=== PATIENT | female | born 1950 | race Two or more races ===

== ENCOUNTER 2018-09-05 10:01 | Emergency (ER) | payer MEDICARE, MEDICAID ==
[~2018-09-05] VITALS: Ht 152.4 cm; Wt 49.9 kg
[2018-09-05] MEDS ORDERED: ONDANSETRON HCL 4 MG/2 ML VIAL IV ONE (11:00)
[2018-09-05] MEDS ORDERED: MORPHINE SULFATE 4 MG/ML SYR/VIAL IV ONE (11:00)
[2018-09-05 14:46] VITALS: BP 151/84
== END 2018-09-05 14:47 | disposition home or self-care (01) ==
LOC: ER 10:15
DX: S42.201A Unspecified fracture of upper end of right humerus, initial encounter for closed fracture (principal); E11.9 Type 2 diabetes mellitus without complications; I10 Essential (primary) hypertension; Z86.73 Personal history of transient ischemic attack (TIA), and cerebral infarction without residual deficits; W01.198A Fall on same level from slipping, tripping and stumbling with subsequent striking against other object, initial encounter; Y93.89 Activity, other specified; Y92.89 Other specified places as the place of occurrence of the external cause; Y99.8 Other external cause status
CPT/HCPCS: 73060; 93005; 96374; 96375; 99283; J2270; J2405

== ENCOUNTER → 2018-10-04 | Outpatient (CLI) | payer MEDICARE, OTHER ==
[~2018-10-04] MED LIST: LEVO500T21 PO; METF-370 PO; METR500T PO
[2018-10-04 09:07] LABS: Basophils # (auto) 0 uL; Basophils % (auto) 0.6 % (0.0-2.0); Eosinophils # (auto) 0 uL; Eosinophils % (auto) 0.6 % (0.0-7.0); Hematocrit 39.8 % (36.0-46.0); Hemoglobin 13.1 g/dL (12.2-16.2); Lymphocytes # (auto) 0.5 uL; Lymphocytes % (auto) 8.4 % (10.0-50.0); Mean Corpuscular Volume 91.1 fL (80.0-100.0); Monocytes # (auto) 0.3 uL; Monocytes % (auto) 5.2 % (0.0-12.0); Neutrophils # (auto) 5.3 uL; Neutrophils % (auto) 85.2 % (37.0-80.0); Platelet Count (auto) 266 10^3/uL (140-450); Red Blood Cells 4.37 10^6/uL (4.0-5.20); Red Cell Distribution Width 15.5 % (11.8-14.3); White Blood Cell 6.3 10^3/uL (4.4-10.8)
== END | disposition home or self-care (01) ==
LOC: LAB 08:53
PROVIDERS: ATTEND Internal Medicine
DX: D64.9 Anemia, unspecified (principal)
CPT/HCPCS: 36415; 85025

== ENCOUNTER → 2018-12-15 | Outpatient (CLI) | payer MEDICARE, OTHER, BC ==
[2018-12-15 11:18] LABS: Urine Bacteria MOD /hpf (None Seen); Urine Blood TRACE /uL (Negative); Urine Mucus FEW (None Seen); Urine Specific Gravity 1.016 (1.001-1.035); Urine WBC 107 /hpf (0 - 5); Urine WBC Clumps PRESENT /hpf (None Seen)
== END | disposition home or self-care (01) ==
LOC: LAB 10:07
PROVIDERS: ATTEND Internal Medicine
DX: Z12.11 Encounter for screening for malignant neoplasm of colon (principal); N39.0 Urinary tract infection, site not specified; E11.9 Type 2 diabetes mellitus without complications; I10 Essential (primary) hypertension; E55.9 Vitamin D deficiency, unspecified
CPT/HCPCS: 81001; 82043; 82306; 87086; 87088; 87186

== ENCOUNTER 2022-05-03 00:13 | Inpatient (IN) | payer MEDICARE, OTHER ==
[~2022-05-03] VITALS: Ht 152.4 cm; Wt 49.7 kg
[~2022-05-03 00:13] MED LIST changes: -LEVO500T21 PO; +LEVO500T31 PO
[2022-05-03 01:55] LABS: Basophils # (auto) 0 10 ^3/uL (0-0.2); Basophils % (auto) 0.4 % (0.0-2.0); Eosinophils # (auto) 0 10 ^3/uL (0-0.8); Eosinophils % (auto) 0.8 % (0.0-7.0); Hematocrit 30.9 % (36.0-46.0); Hemoglobin 9.8 g/dL (12.2-16.2); Lymphocytes # (auto) 0.8 10 ^3/uL (0.4-5.4); Lymphocytes % (auto) 12.7 % (10.0-50.0); Mean Corpuscular Hemoglobin 27.8 pg (28.0-32.0); Mean Corpuscular Hgb Conc. 31.8 g/dL (32.0-36.0); Mean Corpuscular Volume 87.5 fL (80.0-100.0); Monocytes # (auto) 0.4 10 ^3/uL (0-1.3); Monocytes % (auto) 7.3 % (0.0-12.0); Neutrophils # (auto) 4.7 10 ^3/uL (1.6-8.6); Neutrophils % (auto) 78.8 % (37.0-80.0); Red Blood Cells 3.54 10^6/uL (4.0-5.20); Red Cell Distribution Width 17.3 % (11.8-14.3)
[2022-05-03 02:16] LABS: Albumin 2.1 g/dL (3.4-5.0); BUN/Creatinine Ratio 58.8; Calcium 8.1 mg/dL (8.5-10.1); Potassium 4.3 mmol/L (3.5-5.1)
[2022-05-03 02:19] LABS: Bilirubin, Total 1.1 mg/dL (0.2-1.0); Total Protein 4.8 g/dL (6.4-8.2)
[2022-05-03] MEDS ORDERED: SODIUM CHLORIDE 0.9% 500 ML IV ONE (04:15)
[2022-05-03] MEDS ORDERED: IOHEXOL 350 MG/ML 100ML IJ ONE (08:14)
[2022-05-03] MEDS ORDERED: ceFAZolin 1GM/50ML 50 ML IV ONE (11:00)
[2022-05-03] MEDS ORDERED: SODIUM CHLORIDE 0.9% 1,000 ML IV ONE (11:00)
[2022-05-03] MEDS ORDERED: DEXTROSE (50%) 50ML SYRG IV PRN (11:45)
[2022-05-03] MEDS ORDERED: MORPHINE SULFATE INJ 2 MG/ml SYRG IV PRN (11:45)
[2022-05-03] MEDS ORDERED: ACETAMINOPHEN 325 MG TAB PO PRN (11:45)
[2022-05-03] MEDS: SODIUM CHLORIDE 0.9% 1,000 ML IV SCH (11:45)
[2022-05-03] MEDS ORDERED: NITROGLYCERIN 0.4 MG SL TAB SL PRN (11:45)
[2022-05-03 11:47] LABS: Basophils # (auto) 0 10 ^3/uL (0-0.2); Basophils % (auto) 0.4 % (0.0-2.0); Eosinophils # (auto) 0 10 ^3/uL (0-0.8); Eosinophils % (auto) 0.8 % (0.0-7.0); Hematocrit 31.3 % (36.0-46.0); Hemoglobin 10.1 g/dL (12.2-16.2); Lymphocytes # (auto) 0.7 10 ^3/uL (0.4-5.4); Lymphocytes % (auto) 18.7 % (10.0-50.0); Mean Corpuscular Hemoglobin 28.6 pg (28.0-32.0); Mean Corpuscular Hgb Conc. 32.2 g/dL (32.0-36.0); Mean Corpuscular Volume 88.7 fL (80.0-100.0); Monocytes # (auto) 0.3 10 ^3/uL (0-1.3); Monocytes % (auto) 7.4 % (0.0-12.0); Neutrophils # (auto) 2.9 10 ^3/uL (1.6-8.6); Neutrophils % (auto) 72.7 % (37.0-80.0); Nucleated Red Blood Cells % 0.3 %; Red Blood Cells 3.53 10^6/uL (4.0-5.20); White Blood Cell 3.9 10^3/uL (4.4-10.8)
[2022-05-03 11:57] LABS: INR 1.04 (0.9-1.15); Partial Thromboplastin Time 32.8 sec (24.6-33.4)
[2022-05-03 12:03] LABS: Albumin 2.1 g/dL (3.4-5.0); Calcium 7.9 mg/dL (8.5-10.1); Potassium 4.1 mmol/L (3.5-5.1)
[2022-05-03 12:07] LABS: BUN/Creatinine Ratio 53.3; Bilirubin, Total 1.2 mg/dL (0.2-1.0); Total Protein 4.8 g/dL (6.4-8.2)
[2022-05-03] MEDS ORDERED: hydrALAZINE HCL 20 MG/ML VL IV PRN (12:15)
[2022-05-03 12:56] LABS: Cholesterol 107 mg/dL (< 200)
[2022-05-03 12:59] LABS: HDL Cholesterol 45 mg/dL (40-59); LDL Cholesterol 63 mg/dL (< 100); Triglycerides 66 mg/dL (< 150)
[2022-05-03] MEDS: InsuLIN REG 1unit/0.01ml Soln (100units/ml) SC SCH ×2 (17:00→22:26)
[2022-05-03] MEDS: ACCU-CHEK COMFORT CURVE STRIP VI SCH ×2 (17:24→22:19)
[2022-05-04] MEDS: SODIUM CHLORIDE 0.9% 1,000 ML IV SCH ×2 (04:06→20:56)
[2022-05-04 04:39] LABS: Urine Bacteria NONE SEEN /hpf (None Seen); Urine Blood 2+ /uL (Negative); Urine Mucus FEW (None Seen); Urine Specific Gravity 1.017 (1.001-1.035); Urine WBC 133 /hpf (0 - 5)
[2022-05-04 05:44] LABS: Basophils # (auto) 0 10 ^3/uL (0-0.2); Basophils % (auto) 0.4 % (0.0-2.0); Eosinophils # (auto) 0 10 ^3/uL (0-0.8); Eosinophils % (auto) 0.7 % (0.0-7.0); Hematocrit 27.1 % (36.0-46.0); Hemoglobin 8.8 g/dL (12.2-16.2); Lymphocytes # (auto) 1.2 10 ^3/uL (0.4-5.4); Lymphocytes % (auto) 19.5 % (10.0-50.0); Mean Corpuscular Hemoglobin 28.9 pg (28.0-32.0); Mean Corpuscular Hgb Conc. 32.7 g/dL (32.0-36.0); Mean Corpuscular Volume 88.3 fL (80.0-100.0); Monocytes # (auto) 0.4 10 ^3/uL (0-1.3); Monocytes % (auto) 7.1 % (0.0-12.0); Neutrophils # (auto) 4.4 10 ^3/uL (1.6-8.6); Neutrophils % (auto) 72.3 % (37.0-80.0); Nucleated Red Blood Cells % 0.1 %; Red Blood Cells 3.07 10^6/uL (4.0-5.20); Red Cell Distribution Width 17.7 % (11.8-14.3); White Blood Cell 6.1 10^3/uL (4.4-10.8)
[2022-05-04 05:45] LABS: Albumin 1.8 g/dL (3.4-5.0); Calcium 8.1 mg/dL (8.5-10.1); Potassium 4.2 mmol/L (3.5-5.1)
[2022-05-04 05:50] LABS: BUN/Creatinine Ratio 30.8; Bilirubin, Total 1.1 mg/dL (0.2-1.0); Total Protein 4.9 g/dL (6.4-8.2)
[2022-05-04] MEDS: ACCU-CHEK COMFORT CURVE STRIP VI SCH ×4 (06:38→21:49)
[2022-05-04] MEDS: InsuLIN REG 1unit/0.01ml Soln (100units/ml) SC SCH ×4 (06:39→21:50)
[2022-05-04 09:19] VITALS: BP 148/65
[2022-05-04] MEDS: MORPHINE SULFATE INJ 2 MG/ml SYRG IV PRN ×2 (09:22→16:23)
[2022-05-04] MEDS ORDERED: cefTRIAXone 1GM/50ML D5W 50 ML IV ONE (11:00)
[2022-05-04] MEDS: ENOXAPARIN SOD 40 MG/0.4 ML SYRINGE SC SCH (11:02)
[2022-05-04] MEDS: Glucerna Carbsteady SHAKE Vanilla 8oz PO SCH ×2 (12:00→18:00)
[2022-05-04 12:30] VITALS: BP 124/60
[2022-05-04 17:00] VITALS: BP 112/53
[2022-05-04 20:00] VITALS: BP 93/44
[2022-05-04 22:00] VITALS: BP 93/44
[2022-05-05] VITALS (7 sets, daily range): BP systolic 96–140; BP diastolic 47–63
[2022-05-05] MEDS: SODIUM CHLORIDE 0.9% 1,000 ML IV SCH ×2 (03:45→10:13)
[2022-05-05] MEDS: HYDROcodone-ACET 5/325MG TAB PO PRN ×3 (04:33→21:58)
[2022-05-05 06:26] LABS: Potassium 4.2 mmol/L (3.5-5.1)
[2022-05-05] MEDS: ACCU-CHEK COMFORT CURVE STRIP VI SCH ×2 (06:30→21:58)
[2022-05-05] MEDS: InsuLIN REG 1unit/0.01ml Soln (100units/ml) SC SCH ×2 (06:33→22:06)
[2022-05-05 06:39] LABS: BUN/Creatinine Ratio 40.8; Calcium 7.6 mg/dL (8.5-10.1)
[2022-05-05 06:50] LABS: Basophils # (auto) 0 10 ^3/uL (0-0.2); Basophils % (auto) 0.3 % (0.0-2.0); Eosinophils # (auto) 0 10 ^3/uL (0-0.8); Eosinophils % (auto) 0.9 % (0.0-7.0); Lymphocytes # (auto) 1.1 10 ^3/uL (0.4-5.4); Lymphocytes % (auto) 21.8 % (10.0-50.0); Mean Corpuscular Hemoglobin 29.6 pg (28.0-32.0); Mean Corpuscular Hgb Conc. 33.3 g/dL (32.0-36.0); Mean Corpuscular Volume 88.8 fL (80.0-100.0); Monocytes # (auto) 0.4 10 ^3/uL (0-1.3); Monocytes % (auto) 8.8 % (0.0-12.0); Neutrophils # (auto) 3.5 10 ^3/uL (1.6-8.6); Neutrophils % (auto) 68.2 % (37.0-80.0); Nucleated Red Blood Cells % 0.1 %; Red Blood Cells 3.04 10^6/uL (4.0-5.20); Red Cell Distribution Width 18.2 % (11.8-14.3); White Blood Cell 5.1 10^3/uL (4.4-10.8)
[2022-05-05] MEDS: Glucerna Carbsteady SHAKE Vanilla 8oz PO SCH ×3 (08:00→18:00)
[2022-05-05] MEDS: cefTRIAXone 1GM/50ML D5W 50 ML IV SCH (08:41)
[2022-05-05] MEDS: ENOXAPARIN SOD 40 MG/0.4 ML SYRINGE SC SCH (10:11)
[2022-05-06 05:00] VITALS: BP 108/70
[2022-05-06] MEDS: SODIUM CHLORIDE 0.9% 1,000 ML IV SCH ×2 (06:34→19:45)
[2022-05-06] MEDS: ACCU-CHEK COMFORT CURVE STRIP VI SCH ×4 (06:36→21:34)
[2022-05-06] MEDS: InsuLIN REG 1unit/0.01ml Soln (100units/ml) SC SCH ×4 (06:36→21:35)
[2022-05-06 06:48] LABS: Basophils # (auto) 0 10 ^3/uL (0-0.2); Basophils % (auto) 0.2 % (0.0-2.0); Eosinophils # (auto) 0.1 10 ^3/uL (0-0.8); Eosinophils % (auto) 1.3 % (0.0-7.0); Hematocrit 30.1 % (36.0-46.0); Hemoglobin 9.5 g/dL (12.2-16.2); Lymphocytes # (auto) 1.3 10 ^3/uL (0.4-5.4); Lymphocytes % (auto) 20.1 % (10.0-50.0); Mean Corpuscular Hemoglobin 28.1 pg (28.0-32.0); Mean Corpuscular Hgb Conc. 31.5 g/dL (32.0-36.0); Monocytes # (auto) 0.6 10 ^3/uL (0-1.3); Monocytes % (auto) 9.8 % (0.0-12.0); Neutrophils # (auto) 4.3 10 ^3/uL (1.6-8.6); Neutrophils % (auto) 68.6 % (37.0-80.0); Nucleated Red Blood Cells % 0.2 %; Red Blood Cells 3.38 10^6/uL (4.0-5.20); Red Cell Distribution Width 18.8 % (11.8-14.3); White Blood Cell 6.3 10^3/uL (4.4-10.8)
[2022-05-06 08:00] VITALS: BP 123/60
[2022-05-06] MEDS: Glucerna Carbsteady SHAKE Vanilla 8oz PO SCH ×3 (08:00→18:08)
[2022-05-06 08:19] VITALS: BP 123/60
[2022-05-06] MEDS: cefTRIAXone 1GM/50ML D5W 50 ML IV SCH (10:04)
[2022-05-06] MEDS: ENOXAPARIN SOD 40 MG/0.4 ML SYRINGE SC SCH (10:04)
[2022-05-06] MEDS: MORPHINE SULFATE INJ 2 MG/ml SYRG IV PRN (10:05)
[2022-05-06 16:27] VITALS: BP 95/46
[2022-05-06 20:20] VITALS: BP 100/50
[2022-05-06 22:00] VITALS: BP 100/50
[2022-05-06] MEDS: HYDROcodone-ACET 5/325MG TAB PO PRN (23:54)
[2022-05-07 05:00] VITALS: BP 105/44
[2022-05-07] MEDS: ACCU-CHEK COMFORT CURVE STRIP VI SCH ×3 (06:18→18:25)
[2022-05-07] MEDS: InsuLIN REG 1unit/0.01ml Soln (100units/ml) SC SCH ×3 (06:18→17:00)
[2022-05-07 08:00] VITALS: BP 100/50
[2022-05-07 08:19] VITALS: BP 112/52
[2022-05-07] MEDS: cefTRIAXone 1GM/50ML D5W 50 ML IV SCH (09:07)
[2022-05-07] MEDS: SODIUM CHLORIDE 0.9% 1,000 ML IV SCH (09:08)
[2022-05-07] MEDS: Glucerna Carbsteady SHAKE Vanilla 8oz PO SCH ×3 (09:08→18:25)
[2022-05-07] MEDS: ENOXAPARIN SOD 40 MG/0.4 ML SYRINGE SC SCH (09:09)
[2022-05-07 12:19] VITALS: BP 104/31
[2022-05-07 16:19] VITALS: BP 118/53
[2022-05-07 17:02] VITALS: BP 118/53
== END 2022-05-07 19:40 | disposition home health service (06) | DRG 534 ==
LOC: EDBD 00:13 → ER 00:13 → EDUNIT# 00:13 → TELE 11:43 → TELE-WESTW 05-04 08:47
PROVIDERS: ADMIT Registered Nurse; ATTEND Internal Medicine
DX: S72.401A Unspecified fracture of lower end of right femur, initial encounter for closed fracture (principal); N39.0 Urinary tract infection, site not specified; E44.0 Moderate protein-calorie malnutrition; E78.5 Hyperlipidemia, unspecified; D64.9 Anemia, unspecified; E11.9 Type 2 diabetes mellitus without complications; E86.0 Dehydration; I10 Essential (primary) hypertension; W18.39XA Other fall on same level, initial encounter; Z20.822 Contact with and (suspected) exposure to COVID-19; Z86.73 Personal history of transient ischemic attack (TIA), and cerebral infarction without residual deficits; Z68.20 Body mass index [BMI] 20.0-20.9, adult; Y93.89 Activity, other specified; Y92.89 Other specified places as the place of occurrence of the external cause; Y99.8 Other external cause status; M62.461 Contracture of muscle, right lower leg
CPT/HCPCS: 36415; 70450; 71045; 71275; 73590; 73630; 73700; 80048; 80053; 80061; 81001; 82962; 83036; 83880; 84443; 84484; 85025; 85379; 85610; 85730; 87040; 87077; 87086; 87088; 87186; 87426; 93005; 93306; 93926; 93970; 96360; G0378; J0690; J0696; J1815

== ENCOUNTER 2022-08-28 21:06 | Inpatient (IN) | payer MEDICARE, OTHER ==
[~2022-08-28] VITALS: Ht 152.4 cm; Wt 54.2 kg
[2022-08-28 22:19] LABS: Basophils # (auto) 0 10 ^3/uL (0-0.2); Basophils % (auto) 0.1 % (0.0-2.0); Eosinophils # (auto) 0 10 ^3/uL (0-0.8); Eosinophils % (auto) 0.4 % (0.0-7.0); Hemoglobin 13.1 g/dL (12.2-16.2); Lymphocytes # (auto) 0.6 10 ^3/uL (0.4-5.4); Lymphocytes % (auto) 4.7 % (10.0-50.0); Mean Corpuscular Hemoglobin 28.5 pg (28.0-32.0); Mean Corpuscular Volume 89.1 fL (80.0-100.0); Monocytes # (auto) 0.3 10 ^3/uL (0-1.3); Monocytes % (auto) 2.4 % (0.0-12.0); Neutrophils % (auto) 92.4 % (37.0-80.0); Red Cell Distribution Width 19.4 % (11.8-14.3); White Blood Cell 11.9 10^3/uL (4.4-10.8)
[2022-08-28 22:45] LABS: Albumin 2.1 g/dL (3.4-5.0); Calcium 8.5 mg/dL (8.5-10.1)
[2022-08-28 22:49] LABS: BUN/Creatinine Ratio 58.7 (10.0-20.0); Bilirubin, Total 0.7 mg/dL (0.2-1.0); Total Protein 5.8 g/dL (6.4-8.2)
[2022-08-28] MEDS ORDERED: LACTATED RINGER S IV ONE (23:00)
[2022-08-28] MEDS ORDERED: POTASSIUM CHL 20MEQ/100ML 100 ML IV ONE (23:00)
[2022-08-29] MEDS ORDERED: NITROGLYCERIN 0.4 MG SL TAB SL PRN (03:00)
[2022-08-29] MEDS ORDERED: ONDANSETRON HCL 4 MG/2 ML VIAL IV PRN (03:00)
[2022-08-29] MEDS ORDERED: HYDROcodone-ACET 5/325MG TAB PO PRN (03:00)
[2022-08-29] MEDS ORDERED: DEXTROSE (50%) 50ML SYRG IV PRN (03:00)
[2022-08-29] MEDS ORDERED: MORPHINE SULFATE INJ 2 MG/ml SYRG IV PRN (03:00)
[2022-08-29] MEDS ORDERED: cefTRIAXone 1GM/50ML D5W 50 ML IV ONE (03:00)
[2022-08-29] MEDS ORDERED: DOCUSATE SOD 100 MG CAP PO PRN (03:00)
[2022-08-29] MEDS: LACTATED RINGER'S 1,000 ML IV SCH (06:43)
[2022-08-29] MEDS: InsuLIN REG 1unit/0.01ml Soln (100units/ml) SC SCH ×3 (06:54→17:44)
[2022-08-29] MEDS: ACCU-CHEK COMFORT CURVE STRIP VI SCH ×4 (06:54→22:28)
[2022-08-29 07:06] LABS: Basophils # (auto) 0 10 ^3/uL (0-0.2); Eosinophils # (auto) 0 10 ^3/uL (0-0.8); Eosinophils % (auto) 0.1 % (0.0-7.0); Hemoglobin 13.1 g/dL (12.2-16.2); Lymphocytes # (auto) 0.8 10 ^3/uL (0.4-5.4)
[2022-08-29 07:08] LABS: Basophils % (auto) 0.1 % (0.0-2.0); Lymphocytes % (auto) 7.1 % (10.0-50.0); Mean Corpuscular Hemoglobin 29.3 pg (28.0-32.0); Mean Corpuscular Hgb Conc. 33.7 g/dL (32.0-36.0); Mean Corpuscular Volume 86.9 fL (80.0-100.0); Monocytes # (auto) 0.3 10 ^3/uL (0-1.3); Monocytes % (auto) 3.1 % (0.0-12.0); Neutrophils # (auto) 9.8 10 ^3/uL (1.6-8.6); Neutrophils % (auto) 89.6 % (37.0-80.0); Red Blood Cells 4.49 10^6/uL (4.0-5.20); Red Cell Distribution Width 19.2 % (11.8-14.3); White Blood Cell 10.9 10^3/uL (4.4-10.8)
[2022-08-29 07:24] LABS: Alanine Aminotransferase 21 U/L (13-56); Albumin 1.9 g/dL (3.4-5.0); Anion Gap 9 (5-15); Aspartate Aminotransferase 24 U/L (15-37); Blood Urea Nitrogen 78 mg/dL (7-18); Calcium 8.1 mg/dL (8.5-10.1); Carbon Dioxide 23 mmol/L (21-32); Chloride 113 mmol/L (98-107); GFR African American 61 mL/min; GFR Non-African American 50 mL/min; Glucose 110 mg/dL (74-106); Potassium 3.6 mmol/L (3.5-5.1); Sodium 145 mmol/L (136-145)
[2022-08-29 07:27] LABS: Alkaline Phosphatase 103 U/L (45-117); Bilirubin, Total 0.6 mg/dL (0.2-1.0); Total Protein 5.7 g/dL (6.4-8.2)
[2022-08-29] MEDS: ZINC SULFATE 220mg CAP or TAB PO SCH (10:51)
[2022-08-29] MEDS: MULTIPLE VITAMIN TAB PO SCH (10:51)
[2022-08-29] MEDS: ASCORBIC ACID 500 MG TAB PO SCH ×2 (10:52→22:40)
[2022-08-29 13:01] LABS: Urine Bacteria FEW /hpf (None Seen); Urine Blood 3+ /uL (Negative); Urine Mucus FEW (None Seen); Urine Specific Gravity 1.016 (1.001-1.035); Urine WBC 511 /hpf (0 - 5); Urine WBC Clumps PRESENT /hpf (None Seen)
[2022-08-29 13:13] LABS: Alcohol, Urine < 3.0 mg/dL (0-10); Amphetamine Screen, Urine NEGATIVE (NEGATIVE); Barbiturate Scree,Urine NEGATIVE (NEGATIVE); Benzodiazephine Screen, Urine NEGATIVE (NEGATIVE); Cannabinoid Screen, Urine NEGATIVE (NEGATIVE); Cocaine Screen, Urine NEGATIVE (NEGATIVE); Opiate Scree,Urine NEGATIVE (NEGATIVE); Phencyclidine Screen, Urine NEGATIVE (NEGATIVE)
[2022-08-29 13:20] LABS: Protein, Urine 110.4 mg/dL (0.0-11.9)
[2022-08-29] MEDS: MEROPENEM 1GM IVPB 100 ML IV SCH ×2 (13:49→22:05)
[2022-08-29] MEDS ORDERED: POTASSIUM PHOSPHATE 26.4 MEQ in SODIUM CHL 0.9% 100 ML IV ONE ×2 (14:30→15:00)
[2022-08-29] MEDS ORDERED: InsuLIN REG 1unit/0.01ml Soln (100units/ml) SC SCH (22:00)
[2022-08-30] MEDS: LACTATED RINGER'S 1,000 ML IV SCH ×2 (00:30→05:40)
[2022-08-30 00:45] VITALS: BP 129/68
[2022-08-30 05:00] VITALS: BP 133/75
[2022-08-30] MEDS: InsuLIN REG 1unit/0.01ml Soln (100units/ml) SC SCH ×3 (06:02→17:06)
[2022-08-30] MEDS: ACCU-CHEK COMFORT CURVE STRIP VI SCH ×3 (06:02→17:06)
[2022-08-30 06:54] LABS: Basophils # (auto) 0 10 ^3/uL (0-0.2); Basophils % (auto) 0.1 % (0.0-2.0); Eosinophils # (auto) 0 10 ^3/uL (0-0.8); Hemoglobin 13.4 g/dL (12.2-16.2); Monocytes # (auto) 0.2 10 ^3/uL (0-1.3); Neutrophils # (auto) 5.1 10 ^3/uL (1.6-8.6)
[2022-08-30 06:57] LABS: Hematocrit 40.4 % (36.0-46.0); Lymphocytes # (auto) 0.3 10 ^3/uL (0.4-5.4); Lymphocytes % (auto) 6.2 % (10.0-50.0); Mean Corpuscular Hemoglobin 28.9 pg (28.0-32.0); Mean Corpuscular Hgb Conc. 33.1 g/dL (32.0-36.0); Mean Corpuscular Volume 87.3 fL (80.0-100.0); Monocytes % (auto) 3.3 % (0.0-12.0); Neutrophils % (auto) 90.4 % (37.0-80.0); Nucleated Red Blood Cells % 0.1 %; Red Blood Cells 4.63 10^6/uL (4.0-5.20); Red Cell Distribution Width 18.5 % (11.8-14.3); White Blood Cell 5.6 10^3/uL (4.4-10.8)
[2022-08-30 07:25] LABS: Calcium 8.4 mg/dL (8.5-10.1); Magnesium 2.3 mg/dL (1.6-2.6); Potassium 3.2 mmol/L (3.5-5.1)
[2022-08-30 07:28] LABS: BUN/Creatinine Ratio 88.9 (10.0-20.0); Bilirubin, Total 0.5 mg/dL (0.2-1.0); Phosphorus 2.6 mg/dL (2.5-4.90); Total Protein 5.7 g/dL (6.4-8.2)
[2022-08-30] MEDS ORDERED: cefTRIAXone 1GM/50ML D5W 50 ML IV SCH (09:00)
[2022-08-30 09:29] VITALS: BP 117/52
[2022-08-30] MEDS: ASCORBIC ACID 500 MG TAB PO SCH ×2 (10:07→21:41)
[2022-08-30] MEDS: MULTIPLE VITAMIN TAB PO SCH (10:07)
[2022-08-30] MEDS: ZINC SULFATE 220mg CAP or TAB PO SCH (10:07)
[2022-08-30] MEDS ORDERED: POTASSIUM EFFERVESENT TAB 25 MEQ PO ONE (11:15)
[2022-08-30] MEDS: MEROPENEM 1GM IVPB 100 ML IV SCH ×2 (11:22→21:41)
[2022-08-30 13:00] VITALS: BP 122/69
[2022-08-30] MEDS: SOD CHL 0.45% WITH 20MEQ KCL 1,000 ML IV SCH (15:00)
[2022-08-30 17:25] VITALS: BP 122/85
[2022-08-30] MEDS: Ensure HIGH Protein Chocolate 8oz Bottle PO SCH (18:00)
[2022-08-30 22:00] VITALS: BP 133/79
[2022-08-31] VITALS (7 sets, daily range): BP systolic 95–125; BP diastolic 57–81
[2022-08-31] MEDS: SOD CHL 0.45% WITH 20MEQ KCL 1,000 ML IV SCH ×2 (03:27→17:18)
[2022-08-31 06:30] LABS: BUN/Creatinine Ratio 84.5 (10.0-20.0); Calcium 8.1 mg/dL (8.5-10.1); Potassium 4.3 mmol/L (3.5-5.1)
[2022-08-31] MEDS: Ensure HIGH Protein Chocolate 8oz Bottle PO SCH ×3 (08:00→18:00)
[2022-08-31] MEDS: MEROPENEM 1GM IVPB 100 ML IV SCH ×2 (10:02→23:33)
[2022-08-31] MEDS: ASCORBIC ACID 500 MG TAB PO SCH ×2 (10:03→23:33)
[2022-08-31] MEDS: ZINC SULFATE 220mg CAP or TAB PO SCH (10:03)
[2022-08-31] MEDS: MULTIPLE VITAMIN TAB PO SCH (10:03)
[2022-08-31 14:26] LABS: Hepatitis C Antibody Negative (Negative)
[2022-08-31] MEDS: ACETAMINOPHEN 325 MG TAB PO PRN (15:23)
[2022-08-31] MEDS ORDERED: MORPHINE SULFATE INJ 2 MG/ml SYRG IV PRN ×2 (16:30→16:45)
[2022-08-31] MEDS ORDERED: ERGOCALCIFEROL 50,000 UNIT(1.25MG) CAP PO SCH ×2 (17:15)
[2022-08-31] MEDS ORDERED: SODIUM CHLORIDE 0.9% 250 ML IV ONE (18:30)
[2022-09-01] MEDS: SOD CHL 0.45% WITH 20MEQ KCL 1,000 ML IV SCH ×3 (03:15→12:55)
[2022-09-01 05:00] VITALS: BP 110/62
[2022-09-01 05:58] LABS: Basophils # (auto) 0 10 ^3/uL (0-0.2); Basophils % (auto) 0.2 % (0.0-2.0); Eosinophils # (auto) 0 10 ^3/uL (0-0.8); Hematocrit 30.2 % (36.0-46.0); Lymphocytes # (auto) 1.1 10 ^3/uL (0.4-5.4); Lymphocytes % (auto) 18.5 % (10.0-50.0); Monocytes # (auto) 0.4 10 ^3/uL (0-1.3); Neutrophils # (auto) 4.6 10 ^3/uL (1.6-8.6); White Blood Cell 6.1 10^3/uL (4.4-10.8)
[2022-09-01 06:00] LABS: Eosinophils % (auto) 0.5 % (0.0-7.0); Hemoglobin 10.3 g/dL (12.2-16.2); Mean Corpuscular Hemoglobin 29.3 pg (28.0-32.0); Mean Corpuscular Volume 86.1 fL (80.0-100.0); Monocytes % (auto) 6.2 % (0.0-12.0); Neutrophils % (auto) 74.6 % (37.0-80.0); Nucleated Red Blood Cells % 0.1 %; Red Cell Distribution Width 18.5 % (11.8-14.3)
[2022-09-01 06:14] LABS: Potassium 4.5 mmol/L (3.5-5.1)
[2022-09-01 06:17] LABS: Albumin 1.7 g/dL (3.4-5.0); BUN/Creatinine Ratio 77.6 (10.0-20.0); Calcium 7.7 mg/dL (8.5-10.1)
[2022-09-01 06:20] LABS: Bilirubin, Total 0.6 mg/dL (0.2-1.0); Total Protein 4.7 g/dL (6.4-8.2)
[2022-09-01 09:00] VITALS: BP 118/61
[2022-09-01] MEDS: ZINC SULFATE 220mg CAP or TAB PO SCH (09:10)
[2022-09-01] MEDS: Ensure HIGH Protein Chocolate 8oz Bottle PO SCH ×3 (09:10→16:44)
[2022-09-01] MEDS: MEROPENEM 1GM IVPB 100 ML IV SCH ×2 (09:10→21:16)
[2022-09-01] MEDS: MULTIPLE VITAMIN TAB PO SCH (09:11)
[2022-09-01] MEDS: ASCORBIC ACID 500 MG TAB PO SCH ×2 (09:11→21:16)
[2022-09-01 12:30] VITALS: BP 109/58
[2022-09-01] MEDS: ACETAMINOPHEN 325 MG TAB PO PRN (13:26)
[2022-09-01 17:00] VITALS: BP 101/55
[2022-09-01 22:00] VITALS: BP 102/58
[2022-09-02 05:00] VITALS: BP 102/56
[2022-09-02 06:44] LABS: % Iron Saturation 10.2 % (15-50)
[2022-09-02] MEDS: ZINC SULFATE 220mg CAP or TAB PO SCH (08:51)
[2022-09-02] MEDS: MULTIPLE VITAMIN TAB PO SCH (08:51)
[2022-09-02] MEDS: MEROPENEM 1GM IVPB 100 ML IV SCH ×2 (08:51→22:32)
[2022-09-02] MEDS: Ensure HIGH Protein Chocolate 8oz Bottle PO SCH ×3 (08:51→17:35)
[2022-09-02] MEDS: ASCORBIC ACID 500 MG TAB PO SCH ×2 (08:52→22:32)
[2022-09-02 09:00] VITALS: BP 110/59
[2022-09-02 13:00] VITALS: BP 108/58
[2022-09-02] MEDS ORDERED: NUTR-559 PO (15:34)
[2022-09-02] MEDS ORDERED: CEPH-510 PO (15:34)
[2022-09-02] MEDS ORDERED: ERGO1CAP23 PO (15:34)
[2022-09-02 16:42] VITALS: BP 102/62
[2022-09-02] MEDS: SOD CHL 0.45% WITH 20MEQ KCL 1,000 ML IV SCH (19:15)
[2022-09-02 22:00] VITALS: BP 107/62
[2022-09-03 05:00] VITALS: BP 113/75
[2022-09-03 07:07] LABS: Immunoglobulin G, Serum 688 mg/dL (586-1602)
[2022-09-03 08:55] VITALS: BP 110/65
== END 2022-09-03 09:50 | disposition home or self-care (01) | DRG 682 ==
LOC: EDBD 21:06 → ER 21:06 → TELE 08-29 02:49 → TELE-WESTW 08-29 23:51 → WEST WING 09-01 15:24
PROVIDERS: ADMIT Nurse Practitioner Family; ATTEND Internal Medicine
DX: N17.0 Acute kidney failure with tubular necrosis (principal); E43 Unspecified severe protein-calorie malnutrition; Z68.1 Body mass index [BMI] 19.9 or less, adult; N30.01 Acute cystitis with hematuria; F03.918 Unspecified dementia, unspecified severity, with other behavioral disturbance; D69.6 Thrombocytopenia, unspecified; E11.22 Type 2 diabetes mellitus with diabetic chronic kidney disease; E83.39 Other disorders of phosphorus metabolism; E86.0 Dehydration; E87.6 Hypokalemia; I12.9 Hypertensive chronic kidney disease with stage 1 through stage 4 chronic kidney disease, or unspecified chronic kidney disease; N18.9 Chronic kidney disease, unspecified; D64.9 Anemia, unspecified; R00.1 Bradycardia, unspecified; R26.81 Unsteadiness on feet; R79.89 Other specified abnormal findings of blood chemistry; Z74.01 Bed confinement status
CPT/HCPCS: 36415; 70450; 71045; 76775; 80048; 80053; 80307; 81001; 82306; 82570; 82607; 82728; 82784; 82962; 83036; 83540; 83550; 83605; 83615; 83735; 83880; 83970; 84100; 84156; 84300; 84484; 85025; 86038; 86334; 86803; 86880; 87040; 87086; 87088; 87186; 87340; 93005; 96361; 96365; 96367; G0378; J0696; J1815; J2185; J3480

== ENCOUNTER 2022-09-23 17:03 | Inpatient (IN) | payer MEDICARE, OTHER ==
[~2022-09-23] VITALS: Ht 157.5 cm; Wt 54.4 kg
[~2022-09-23 17:03] MED LIST changes: +CEPH-510 PO; +ERGO1CAP23 PO; -LEVO500T31 PO; -METF-370 PO; -METR500T PO; +NUTR-559 PO
[2022-09-23 19:46] LABS: Basophils # (auto) 0 10 ^3/uL (0-0.2); Basophils % (auto) 0.4 % (0.0-2.0); Eosinophils # (auto) 0 10 ^3/uL (0-0.8); Hematocrit 36.3 % (36.0-46.0); Hemoglobin 11.7 g/dL (12.2-16.2); Lymphocytes # (auto) 0.5 10 ^3/uL (0.4-5.4); Lymphocytes % (auto) 5.1 % (10.0-50.0); Mean Corpuscular Hgb Conc. 32.2 g/dL (32.0-36.0); Mean Corpuscular Volume 90.1 fL (80.0-100.0); Monocytes # (auto) 0.3 10 ^3/uL (0-1.3); Neutrophils # (auto) 9.1 10 ^3/uL (1.6-8.6); Neutrophils % (auto) 91.5 % (37.0-80.0); Nucleated Red Blood Cells % 0.1 %; Red Blood Cells 4.03 10^6/uL (4.0-5.20); Red Cell Distribution Width 18.3 % (11.8-14.3)
[2022-09-23 20:01] LABS: Calcium 8.5 mg/dL (8.5-10.1)
[2022-09-23 20:05] LABS: BUN/Creatinine Ratio 73.1 (10.0-20.0); Bilirubin, Total 0.8 mg/dL (0.2-1.0); Total Protein 5.2 g/dL (6.4-8.2)
[2022-09-23 20:11] LABS: Potassium 2.8 mmol/L (3.5-5.1)
[2022-09-23] MEDS ORDERED: POTASSIUM EFFERVESENT TAB 25 MEQ PO ONE (20:30)
[2022-09-23] MEDS ORDERED: D5W/LACTATED RINGERS 1,000 ML IV ONE (21:15)
[2022-09-23] MEDS ORDERED: DEXTROSE (50%) 50ML SYRG IV PRN (22:00)
[2022-09-23] MEDS ORDERED: MORPHINE SULFATE INJ 2 MG/ml SYRG IV PRN (22:00)
[2022-09-23] MEDS ORDERED: NITROGLYCERIN 0.4 MG SL TAB SL PRN (22:00)
[2022-09-23] MEDS: ACCU-CHEK COMFORT CURVE STRIP VI SCH (22:14)
[2022-09-23] MEDS ORDERED: hydrALAZINE HCL 20 MG/ML VL IV PRN (22:15)
[2022-09-23] MEDS: D5W/LACTATED RINGERS 1,000 ML IV SCH (22:54)
[2022-09-23] MEDS: POTASSIUM CHL 20MEQ/100ML 100 ML IV SCH (22:54)
[2022-09-24] MEDS: POTASSIUM CHL 20MEQ/100ML 100 ML IV SCH (01:23)
[2022-09-24 01:26] LABS: Urine Amorphous Crystal FEW /hpf (None Seen); Urine Bacteria MANY /hpf (None Seen); Urine Mucus MODERATE (None Seen); Urine WBC 71 /hpf (0 - 5); Urine WBC Clumps PRESENT /hpf (None Seen)
[2022-09-24 01:27] LABS: Urine Blood 3+ /uL (Negative); Urine Specific Gravity 1.005 (1.001-1.035)
[2022-09-24] MEDS: ACCU-CHEK COMFORT CURVE STRIP VI SCH ×6 (02:16→22:00)
[2022-09-24] MEDS ORDERED: cefTRIAXone 1GM/50ML D5W 50 ML IV ONE (04:15)
[2022-09-24 05:54] LABS: Basophils # (auto) 0 10 ^3/uL (0-0.2); Basophils % (auto) 0.1 % (0.0-2.0); Eosinophils # (auto) 0 10 ^3/uL (0-0.8); Eosinophils % (auto) 0.1 % (0.0-7.0); Hematocrit 31.1 % (36.0-46.0); Hemoglobin 10.3 g/dL (12.2-16.2); Lymphocytes # (auto) 0.7 10 ^3/uL (0.4-5.4); Mean Corpuscular Hemoglobin 29.6 pg (28.0-32.0); Mean Corpuscular Hgb Conc. 33.2 g/dL (32.0-36.0); Mean Corpuscular Volume 89.1 fL (80.0-100.0); Monocytes # (auto) 0.3 10 ^3/uL (0-1.3); Neutrophils # (auto) 5.9 10 ^3/uL (1.6-8.6); Neutrophils % (auto) 84.8 % (37.0-80.0); Nucleated Red Blood Cells % 0.1 %; Red Blood Cells 3.49 10^6/uL (4.0-5.20); Red Cell Distribution Width 17.3 % (11.8-14.3); White Blood Cell 6.9 10^3/uL (4.4-10.8)
[2022-09-24 06:08] LABS: Potassium 3.4 mmol/L (3.5-5.1)
[2022-09-24 06:17] LABS: Albumin 1.9 g/dL (3.4-5.0); BUN/Creatinine Ratio 69.2 (10.0-20.0); Bilirubin, Total 0.6 mg/dL (0.2-1.0); Calcium 8.3 mg/dL (8.5-10.1); Total Protein 4.8 g/dL (6.4-8.2)
[2022-09-24] MEDS ORDERED: KETOROLAC TROMETH 30 MG/ML 1ML VIAL IV ONE (07:15)
[2022-09-24] MEDS: D5W/LACTATED RINGERS 1,000 ML IV SCH ×3 (09:54→19:57)
[2022-09-24] MEDS ORDERED: ENOXAPARIN SOD 30 MG/0.3 ML SYRINGE SC SCH (10:00)
[2022-09-24] MEDS: PANTOPRAZOLE 40 MG/10 ML VIAL INJ IV SCH (10:35)
[2022-09-24] MEDS: CHOLECALCIFEROL (VITD3) 2,000 UNIT CAP/TAB PO SCH (10:35)
[2022-09-24 14:29] VITALS: BP 104/56
[2022-09-24 15:07] VITALS: BP 104/56
[2022-09-24] MEDS ORDERED: HYDR1TAB97 PO (15:15)
[2022-09-24] MEDS: HYDROcodone-ACET 5/325MG TAB PO PRN (19:57)
[2022-09-24 20:00] VITALS: BP 107/58
[2022-09-24] MEDS: cefTRIAXone 1GM/50ML D5W 50 ML IV SCH (21:32)
[2022-09-24 22:00] VITALS: BP 171/78
[2022-09-24 22:10] VITALS: BP 107/58
[2022-09-25] MEDS: ACCU-CHEK COMFORT CURVE STRIP VI SCH ×6 (02:40→21:43)
[2022-09-25] MEDS: D5W/LACTATED RINGERS 1,000 ML IV SCH (04:16)
[2022-09-25 05:00] VITALS: BP 102/55
[2022-09-25 09:36] VITALS: BP 124/64
[2022-09-25] MEDS: PANTOPRAZOLE 40 MG/10 ML VIAL INJ IV SCH (10:13)
[2022-09-25] MEDS: CHOLECALCIFEROL (VITD3) 2,000 UNIT CAP/TAB PO SCH (10:13)
[2022-09-25 13:00] VITALS: BP 140/67
[2022-09-25] MEDS: D5W 5% 1,000 ML IV SCH (14:54)
[2022-09-25 16:28] VITALS: BP 109/68
[2022-09-25] MEDS: HYDROcodone-ACET 5/325MG TAB PO PRN (18:52)
[2022-09-25 20:00] VITALS: BP 102/57
[2022-09-25] MEDS: cefTRIAXone 1GM/50ML D5W 50 ML IV SCH (21:01)
[2022-09-25 22:00] VITALS: BP 102/57
[2022-09-26] MEDS: D5W 5% 1,000 ML IV SCH ×2 (02:08→14:47)
[2022-09-26] MEDS: ACCU-CHEK COMFORT CURVE STRIP VI SCH ×6 (02:08→22:09)
[2022-09-26 05:00] VITALS: BP 143/76
[2022-09-26 08:00] VITALS: BP 134/87
[2022-09-26 09:00] VITALS: BP 120/68
[2022-09-26] MEDS: PANTOPRAZOLE 40 MG/10 ML VIAL INJ IV SCH (11:23)
[2022-09-26] MEDS: CHOLECALCIFEROL (VITD3) 2,000 UNIT CAP/TAB PO SCH (11:23)
[2022-09-26 13:00] VITALS: BP 134/87
[2022-09-26] MEDS: cefTRIAXone 1GM/50ML D5W 50 ML IV SCH (21:12)
[2022-09-26 22:00] VITALS: BP 111/53
[2022-09-27] MEDS: ACCU-CHEK COMFORT CURVE STRIP VI SCH ×6 (01:50→21:18)
[2022-09-27] MEDS: D5W 5% 1,000 ML IV SCH (03:27)
[2022-09-27 05:00] VITALS: BP 106/42
[2022-09-27 06:55] VITALS: BP 106/42
[2022-09-27] MEDS: PANTOPRAZOLE 40 MG/10 ML VIAL INJ IV SCH (08:54)
[2022-09-27] MEDS: CHOLECALCIFEROL (VITD3) 2,000 UNIT CAP/TAB PO SCH (08:54)
[2022-09-27] MEDS: HYDROcodone-ACET 5/325MG TAB PO PRN (08:54)
[2022-09-27 09:00] VITALS: BP 155/56
[2022-09-27 09:36] LABS: Basophils # (auto) 0 10 ^3/uL (0-0.2); Basophils % (auto) 0.1 % (0.0-2.0); Eosinophils # (auto) 0 10 ^3/uL (0-0.8); Eosinophils % (auto) 0.4 % (0.0-7.0); Hematocrit 33.3 % (36.0-46.0); Hemoglobin 10.8 g/dL (12.2-16.2); Lymphocytes # (auto) 0.9 10 ^3/uL (0.4-5.4); Lymphocytes % (auto) 17.6 % (10.0-50.0); Mean Corpuscular Hemoglobin 28.8 pg (28.0-32.0); Mean Corpuscular Hgb Conc. 32.3 g/dL (32.0-36.0); Mean Corpuscular Volume 89.2 fL (80.0-100.0); Monocytes # (auto) 0.2 10 ^3/uL (0-1.3); Monocytes % (auto) 4.3 % (0.0-12.0); Neutrophils # (auto) 4.2 10 ^3/uL (1.6-8.6); Neutrophils % (auto) 77.6 % (37.0-80.0); Nucleated Red Blood Cells % 0.2 %; Red Blood Cells 3.73 10^6/uL (4.0-5.20); Red Cell Distribution Width 17.4 % (11.8-14.3); White Blood Cell 5.4 10^3/uL (4.4-10.8)
[2022-09-27 09:57] LABS: Albumin 1.6 g/dL (3.4-5.0); Calcium 7.8 mg/dL (8.5-10.1); Potassium 3.8 mmol/L (3.5-5.1)
[2022-09-27 10:02] LABS: BUN/Creatinine Ratio 82.8 (10.0-20.0); Bilirubin, Total 0.5 mg/dL (0.2-1.0); Total Protein 4.2 g/dL (6.4-8.2)
[2022-09-27 12:47] VITALS: BP 139/20
[2022-09-27 16:34] VITALS: BP 102/53
[2022-09-27] MEDS: cefTRIAXone 1GM/50ML D5W 50 ML IV SCH (20:24)
[2022-09-27 22:00] VITALS: BP 139/73
[2022-09-28] MEDS: ACCU-CHEK COMFORT CURVE STRIP VI SCH ×6 (01:36→21:15)
[2022-09-28 05:00] VITALS: BP 140/86
[2022-09-28 09:00] VITALS: BP 136/59
[2022-09-28] MEDS: PANTOPRAZOLE 40 MG/10 ML VIAL INJ IV SCH (09:26)
[2022-09-28] MEDS: CHOLECALCIFEROL (VITD3) 2,000 UNIT CAP/TAB PO SCH (09:26)
[2022-09-28 13:00] VITALS: BP 141/81
[2022-09-28] MEDS ORDERED: ERTAPENEM SOD INJ 1 GM in SODIUM CHL 0.9% 50 ML IV ONE (13:00)
[2022-09-28] MEDS ORDERED: LACTULOSE 20Gm/30ML SOLN PO ONE (13:00)
[2022-09-28] MEDS: HYDROcodone-ACET 5/325MG TAB PO PRN (15:55)
[2022-09-28 17:00] VITALS: BP 107/45
[2022-09-28] MEDS: Ensure HIGH Protein Chocolate 8oz Bottle PO SCH (18:24)
[2022-09-28] MEDS: LACTULOSE 20Gm/30ML SOLN PO SCH (21:14)
[2022-09-28 22:00] VITALS: BP 101/43
[2022-09-29 00:48] VITALS: BP 97/60
[2022-09-29] MEDS: ACCU-CHEK COMFORT CURVE STRIP VI SCH ×6 (02:09→22:08)
[2022-09-29 05:00] VITALS: BP 92/48
[2022-09-29 06:50] LABS: Potassium 3.1 mmol/L (3.5-5.1)
[2022-09-29 06:57] LABS: Basophils # (auto) 0 10 ^3/uL (0-0.2); Basophils % (auto) 0.2 % (0.0-2.0); Eosinophils # (auto) 0 10 ^3/uL (0-0.8); Eosinophils % (auto) 0.1 % (0.0-7.0); Hematocrit 27.7 % (36.0-46.0); Hemoglobin 8.8 g/dL (12.2-16.2); Lymphocytes # (auto) 0.9 10 ^3/uL (0.4-5.4); Lymphocytes % (auto) 13.4 % (10.0-50.0); Mean Corpuscular Hgb Conc. 31.8 g/dL (32.0-36.0); Monocytes # (auto) 0.4 10 ^3/uL (0-1.3); Monocytes % (auto) 5.5 % (0.0-12.0); Neutrophils # (auto) 5.2 10 ^3/uL (1.6-8.6); Neutrophils % (auto) 80.8 % (37.0-80.0); Nucleated Red Blood Cells % 0.1 %; Red Blood Cells 3.15 10^6/uL (4.0-5.20); Red Cell Distribution Width 17.2 % (11.8-14.3); White Blood Cell 6.5 10^3/uL (4.4-10.8)
[2022-09-29 06:58] LABS: BUN/Creatinine Ratio 55.6 (10.0-20.0); Calcium 7.8 mg/dL (8.5-10.1)
[2022-09-29 09:00] VITALS: BP 93/46
[2022-09-29] MEDS: ERTAPENEM SOD INJ 1 GM in SODIUM CHL 0.9% 50 ML IV SCH (10:37)
[2022-09-29] MEDS: LACTULOSE 20Gm/30ML SOLN PO SCH ×2 (10:38→22:08)
[2022-09-29] MEDS: CHOLECALCIFEROL (VITD3) 2,000 UNIT CAP/TAB PO SCH (10:46)
[2022-09-29] MEDS: Ensure HIGH Protein Chocolate 8oz Bottle PO SCH ×3 (10:50→18:52)
[2022-09-29] MEDS ORDERED: DEXTROSE 10% 250 ML IV ONE (12:00)
[2022-09-29 13:00] VITALS: BP 90/47
[2022-09-29] MEDS ORDERED: POTASSIUM EFFERVESENT TAB 25 MEQ PO ONE (13:15)
[2022-09-29 17:00] VITALS: BP 131/74
[2022-09-29 21:39] LABS: Urine Bacteria NONE SEEN /hpf (None Seen); Urine Blood Negative /uL (Negative); Urine Mucus MODERATE (None Seen); Urine Specific Gravity 1.025 (1.001-1.035); Urine WBC 177 /hpf (0 - 5)
[2022-09-29 21:59] VITALS: BP 97/48
[2022-09-30] MEDS: ACCU-CHEK COMFORT CURVE STRIP VI SCH ×6 (02:03→21:45)
[2022-09-30 05:00] VITALS: BP 137/54
[2022-09-30 06:46] LABS: Basophils # (auto) 0 10 ^3/uL (0-0.2); Basophils % (auto) 0.1 % (0.0-2.0); Eosinophils # (auto) 0 10 ^3/uL (0-0.8); Eosinophils % (auto) 0.1 % (0.0-7.0); Hematocrit 26.4 % (36.0-46.0); Hemoglobin 8.9 g/dL (12.2-16.2); Lymphocytes # (auto) 0.7 10 ^3/uL (0.4-5.4); Lymphocytes % (auto) 8.4 % (10.0-50.0); Mean Corpuscular Hemoglobin 29.9 pg (28.0-32.0); Mean Corpuscular Hgb Conc. 33.5 g/dL (32.0-36.0); Mean Corpuscular Volume 89.3 fL (80.0-100.0); Monocytes # (auto) 0.3 10 ^3/uL (0-1.3); Monocytes % (auto) 3.6 % (0.0-12.0); Neutrophils # (auto) 7.7 10 ^3/uL (1.6-8.6); Neutrophils % (auto) 87.8 % (37.0-80.0); Red Blood Cells 2.96 10^6/uL (4.0-5.20); White Blood Cell 8.7 10^3/uL (4.4-10.8)
[2022-09-30 07:38] LABS: BUN/Creatinine Ratio 61.5 (10.0-20.0); Calcium 7.9 mg/dL (8.5-10.1); Potassium 3.4 mmol/L (3.5-5.1)
[2022-09-30] MEDS: Ensure HIGH Protein Chocolate 8oz Bottle PO SCH ×3 (08:00→18:18)
[2022-09-30 09:00] VITALS: BP 97/51
[2022-09-30] MEDS: CHOLECALCIFEROL (VITD3) 2,000 UNIT CAP/TAB PO SCH (10:12)
[2022-09-30] MEDS: ERTAPENEM SOD INJ 1 GM in SODIUM CHL 0.9% 50 ML IV SCH (10:12)
[2022-09-30] MEDS: LACTULOSE 20Gm/30ML SOLN PO SCH ×2 (10:12→21:45)
[2022-09-30 13:00] VITALS: BP 111/52
[2022-09-30 16:33] VITALS: BP 120/60
[2022-09-30 22:00] VITALS: BP 125/55
[2022-09-30] MEDS: HYDROcodone-ACET 5/325MG TAB PO PRN (23:14)
[2022-10-01] MEDS: ACCU-CHEK COMFORT CURVE STRIP VI SCH ×3 (02:18→10:28)
[2022-10-01 05:00] VITALS: BP 118/66
[2022-10-01] MEDS: HYDROcodone-ACET 5/325MG TAB PO PRN ×2 (08:46→18:37)
[2022-10-01] MEDS: CHOLECALCIFEROL (VITD3) 2,000 UNIT CAP/TAB PO SCH (08:46)
[2022-10-01] MEDS: Ensure HIGH Protein Chocolate 8oz Bottle PO SCH ×3 (08:49→18:17)
[2022-10-01] MEDS: ERTAPENEM SOD INJ 1 GM in SODIUM CHL 0.9% 50 ML IV SCH (08:51)
[2022-10-01 09:00] VITALS: BP 124/65
[2022-10-01] MEDS: LACTULOSE 20Gm/30ML SOLN PO SCH (10:23)
[2022-10-01 13:00] VITALS: BP 127/59
[2022-10-01 22:00] VITALS: BP 122/48
[2022-10-02 05:00] VITALS: BP 115/52
[2022-10-02 06:56] LABS: Basophils # (auto) 0 10 ^3/uL (0-0.2); Basophils % (auto) 0.3 % (0.0-2.0); Eosinophils # (auto) 0 10 ^3/uL (0-0.8); Eosinophils % (auto) 0.5 % (0.0-7.0); Hematocrit 25.9 % (36.0-46.0); Hemoglobin 8.6 g/dL (12.2-16.2); Lymphocytes # (auto) 0.9 10 ^3/uL (0.4-5.4); Lymphocytes % (auto) 15.8 % (10.0-50.0); Mean Corpuscular Hgb Conc. 33.3 g/dL (32.0-36.0); Monocytes # (auto) 0.3 10 ^3/uL (0-1.3); Monocytes % (auto) 4.6 % (0.0-12.0); Neutrophils # (auto) 4.5 10 ^3/uL (1.6-8.6); Neutrophils % (auto) 78.8 % (37.0-80.0); Nucleated Red Blood Cells % 0.3 %; Red Blood Cells 2.87 10^6/uL (4.0-5.20); White Blood Cell 5.7 10^3/uL (4.4-10.8)
[2022-10-02 07:16] LABS: Anion Gap 3 (5-15); Blood Urea Nitrogen 13 mg/dL (7-18); Calcium 8.2 mg/dL (8.5-10.1); Carbon Dioxide 27 mmol/L (21-32); Chloride 106 mmol/L (98-107); Glucose 63 mg/dL (74-106); Sodium 136 mmol/L (136-145)
[2022-10-02 07:17] LABS: BUN/Creatinine Ratio 86.7 (10.0-20.0)
[2022-10-02 07:18] LABS: GFR African American 624 mL/min; GFR Non-African American 516 mL/min
[2022-10-02] MEDS: Ensure HIGH Protein Chocolate 8oz Bottle PO SCH ×3 (08:55→19:31)
[2022-10-02 09:00] VITALS: BP 120/67
[2022-10-02] MEDS: HYDROcodone-ACET 5/325MG TAB PO PRN ×2 (09:06→14:49)
[2022-10-02] MEDS: CHOLECALCIFEROL (VITD3) 2,000 UNIT CAP/TAB PO SCH (09:06)
[2022-10-02] MEDS: ERTAPENEM SOD INJ 1 GM in SODIUM CHL 0.9% 50 ML IV SCH (09:06)
[2022-10-02 13:00] VITALS: BP 127/67
[2022-10-02 17:00] VITALS: BP 125/53
[2022-10-02 20:00] VITALS: BP 125/58
[2022-10-02 22:00] VITALS: BP 105/49
[2022-10-03 05:00] VITALS: BP 105/59
[2022-10-03 06:47] LABS: Basophils # (auto) 0 10 ^3/uL (0-0.2); Basophils % (auto) 0.4 % (0.0-2.0); Eosinophils # (auto) 0 10 ^3/uL (0-0.8); Eosinophils % (auto) 0.2 % (0.0-7.0); Hemoglobin 8.3 g/dL (12.2-16.2); Lymphocytes # (auto) 0.5 10 ^3/uL (0.4-5.4); Monocytes # (auto) 0.3 10 ^3/uL (0-1.3); Neutrophils # (auto) 4.5 10 ^3/uL (1.6-8.6); Neutrophils % (auto) 84.4 % (37.0-80.0)
[2022-10-03 06:56] LABS: Hematocrit 24.6 % (36.0-46.0); Lymphocytes % (auto) 10.2 % (10.0-50.0); Mean Corpuscular Hgb Conc. 33.7 g/dL (32.0-36.0); Mean Corpuscular Volume 88.9 fL (80.0-100.0); Monocytes % (auto) 4.8 % (0.0-12.0); Red Blood Cells 2.77 10^6/uL (4.0-5.20); Red Cell Distribution Width 17.1 % (11.8-14.3); White Blood Cell 5.4 10^3/uL (4.4-10.8)
[2022-10-03] MEDS: Ensure HIGH Protein Chocolate 8oz Bottle PO SCH ×3 (08:00→18:47)
[2022-10-03 09:00] VITALS: BP 111/52
[2022-10-03] MEDS: ERTAPENEM SOD INJ 1 GM in SODIUM CHL 0.9% 50 ML IV SCH (09:58)
[2022-10-03] MEDS: CHOLECALCIFEROL (VITD3) 2,000 UNIT CAP/TAB PO SCH (10:00)
[2022-10-03] MEDS ORDERED: DEXTROSE (50%) 50ML SYRG IV PRN (10:15)
[2022-10-03] MEDS: InsuLIN REG 1unit/0.01ml Soln (100units/ml) SC SCH ×3 (11:30→21:50)
[2022-10-03] MEDS: ACCU-CHEK COMFORT CURVE STRIP VI SCH ×3 (11:48→21:49)
[2022-10-03] MEDS ORDERED: DEXTROSE 10% 250 ML IV ONE (11:53)
[2022-10-03] MEDS ORDERED: DEXTROSE 10% 250 ML Bag IV PRN (12:00)
[2022-10-03] MEDS: D5W/SOD CHLO 0.9% 1,000 ML IV SCH (12:15)
[2022-10-03 12:20] VITALS: BP 105/52
[2022-10-03 17:00] VITALS: BP 117/56
[2022-10-03 22:00] VITALS: BP 131/67
[2022-10-04] MEDS: D5W/SOD CHLO 0.9% 1,000 ML IV SCH ×3 (00:12→18:15)
[2022-10-04 05:00] VITALS: BP 144/53
[2022-10-04] MEDS: InsuLIN REG 1unit/0.01ml Soln (100units/ml) SC SCH ×4 (06:47→22:00)
[2022-10-04] MEDS: ACCU-CHEK COMFORT CURVE STRIP VI SCH ×4 (06:47→22:00)
[2022-10-04 09:00] VITALS: BP 148/55
[2022-10-04] MEDS: Ensure HIGH Protein Chocolate 8oz Bottle PO SCH ×3 (10:25→18:32)
[2022-10-04] MEDS: CHOLECALCIFEROL (VITD3) 2,000 UNIT CAP/TAB PO SCH (10:25)
[2022-10-04] MEDS: ERTAPENEM SOD INJ 1 GM in SODIUM CHL 0.9% 50 ML IV SCH (10:25)
[2022-10-04 13:00] VITALS: BP 113/52
[2022-10-04] MEDS: HYDROcodone-ACET 5/325MG TAB PO PRN (16:11)
[2022-10-04 17:00] VITALS: BP 116/54
[2022-10-04 22:00] VITALS: BP 134/62
[2022-10-05] MEDS: D5W/SOD CHLO 0.9% 1,000 ML IV SCH ×2 (04:15→14:00)
[2022-10-05 05:00] VITALS: BP 122/58
[2022-10-05] MEDS: InsuLIN REG 1unit/0.01ml Soln (100units/ml) SC SCH ×4 (06:20→21:11)
[2022-10-05] MEDS: ACCU-CHEK COMFORT CURVE STRIP VI SCH ×4 (06:22→21:11)
[2022-10-05] MEDS: Ensure HIGH Protein Chocolate 8oz Bottle PO SCH ×3 (08:00→18:06)
[2022-10-05 09:00] VITALS: BP 136/48
[2022-10-05] MEDS: ERTAPENEM SOD INJ 1 GM in SODIUM CHL 0.9% 50 ML IV SCH (09:22)
[2022-10-05] MEDS: CHOLECALCIFEROL (VITD3) 2,000 UNIT CAP/TAB PO SCH (09:22)
[2022-10-05 13:00] VITALS: BP 140/59
[2022-10-05 17:00] VITALS: BP 158/42
[2022-10-05 22:00] VITALS: BP 154/71
[2022-10-05 22:40] VITALS: BP 140/60
[2022-10-06] MEDS: D5W/SOD CHLO 0.9% 1,000 ML IV SCH (03:20)
[2022-10-06 05:00] VITALS: BP 125/58
[2022-10-06 06:04] LABS: Basophils # (auto) 0 10 ^3/uL (0-0.2); Eosinophils # (auto) 0 10 ^3/uL (0-0.8); Hemoglobin 8.4 g/dL (12.2-16.2); Lymphocytes # (auto) 0.8 10 ^3/uL (0.4-5.4); Monocytes # (auto) 0.3 10 ^3/uL (0-1.3); White Blood Cell 3.5 10^3/uL (4.4-10.8)
[2022-10-06 06:08] LABS: Basophils % (auto) 0.2 % (0.0-2.0); Eosinophils % (auto) 0.8 % (0.0-7.0); Hematocrit 25.4 % (36.0-46.0); Lymphocytes % (auto) 24.2 % (10.0-50.0); Mean Corpuscular Hemoglobin 29.8 pg (28.0-32.0); Mean Corpuscular Hgb Conc. 33.2 g/dL (32.0-36.0); Mean Corpuscular Volume 89.8 fL (80.0-100.0); Monocytes % (auto) 7.4 % (0.0-12.0); Neutrophils # (auto) 2.3 10 ^3/uL (1.6-8.6); Neutrophils % (auto) 67.4 % (37.0-80.0); Nucleated Red Blood Cells % 0.2 %; Red Blood Cells 2.83 10^6/uL (4.0-5.20); Red Cell Distribution Width 17.4 % (11.8-14.3)
[2022-10-06 06:17] LABS: Potassium 3.8 mmol/L (3.5-5.1)
[2022-10-06 06:22] LABS: BUN/Creatinine Ratio 82.4 (10.0-20.0); Calcium 7.6 mg/dL (8.5-10.1)
[2022-10-06] MEDS: InsuLIN REG 1unit/0.01ml Soln (100units/ml) SC SCH ×2 (06:27→11:30)
[2022-10-06] MEDS: ACCU-CHEK COMFORT CURVE STRIP VI SCH ×2 (06:28→11:51)
[2022-10-06 09:00] VITALS: BP 120/66
[2022-10-06] MEDS: CHOLECALCIFEROL (VITD3) 2,000 UNIT CAP/TAB PO SCH (10:41)
[2022-10-06] MEDS: ERTAPENEM SOD INJ 1 GM in SODIUM CHL 0.9% 50 ML IV SCH (10:41)
[2022-10-06] MEDS: Ensure HIGH Protein Chocolate 8oz Bottle PO SCH ×2 (10:42→13:47)
[2022-10-06 13:00] VITALS: BP 129/58
[2022-10-06 15:23] VITALS: BP 129/58
[2022-10-06 17:00] VITALS: BP 128/63
== END 2022-10-06 17:06 | disposition hospice, inpatient (51) | DRG 871 ==
LOC: EDUNIT# 17:03 → EDBD 17:03 → ER 17:03 → TELE 22:04 → TELE-WESTW 09-24 14:30 → WEST WING 09-30 16:21
PROVIDERS: ADMIT Registered Nurse; ATTEND Internal Medicine
DX: A41.9 Sepsis, unspecified organism (principal); J69.0 Pneumonitis due to inhalation of food and vomit; S42.211A Unspecified displaced fracture of surgical neck of right humerus, initial encounter for closed fracture; R64 Cachexia; N39.0 Urinary tract infection, site not specified; E87.0 Hyperosmolality and hypernatremia; E87.1 Hypo-osmolality and hyponatremia; E11.649 Type 2 diabetes mellitus with hypoglycemia without coma; E86.0 Dehydration; D69.6 Thrombocytopenia, unspecified; E87.6 Hypokalemia; F03.90 Unspecified dementia, unspecified severity, without behavioral disturbance, psychotic disturbance, mood disturbance, and anxiety; I10 Essential (primary) hypertension; L89.90 Pressure ulcer of unspecified site, unspecified stage; X58.XXXA Exposure to other specified factors, initial encounter; B96.89 Other specified bacterial agents as the cause of diseases classified elsewhere; Z74.01 Bed confinement status; Z51.5 Encounter for palliative care; Z86.73 Personal history of transient ischemic attack (TIA), and cerebral infarction without residual deficits; Y93.89 Activity, other specified; Y92.89 Other specified places as the place of occurrence of the external cause; Y99.8 Other external cause status; Z68.21 Body mass index [BMI] 21.0-21.9, adult
CPT/HCPCS: 36415; 71045; 80048; 80053; 81001; 82962; 83605; 85025; 87040; 87077; 87186; 87205; 96361; 96365; C9113; G0378; J0696; J1335; J1815; J1885; J3480; J7042